=== PATIENT | male | born 1965 | race Caucasian/White ===

== ENCOUNTER 2021-11-25 21:27 | Emergency (ER) | payer BC, SELFPAY ==
[2021-11-25 21:41] VITALS: RESP 20; O2SAT 96
--- NOTE | 2021-11-25 21:41 | CRLHL7_ITS ---
For Patients: As a result of the Cures Act, medical imaging exams and procedure reports are released immediately into your electronic medical record. You may view this report before your referring provider. If you have questions, please contact your health care provider. INDICATION: Fever, cough. TECHNIQUE: Chest 1 views. COMPARISON: None. FINDINGS: Lungs: Hazy right lower lobe opacity. Pleura: No pleural effusion or pneumothorax. Heart and Mediastinum: The cardiomediastinal silhouette is normal. The vessels are unremarkable. Bones: Unremarkable. IMPRESSION: Right lower lobe opacity is suggestive of pneumonia. Dictated by Gabriel Doty MD @ 11/25/2021 10:16:08 PM (Electronically Signed)
--- NOTE | 2021-11-25 21:42 | ED_ITS ---
HPI - General Adult General Chief complaint: Fever Stated complaint: FEVER,ACHES,VOMITING-SINCE FRIDAY Time Seen by Provider: 11/25/21 21:29 Source: patient and family Mode of arrival: ambulatory Limitations: no limitations History of Present Illness HPI narrative: 56-year-old male who comes in today not feeling well for the last 5 days. Symptoms include headache, fatigue, fever, vomiting, and cough. No diarrhea, no abdominal pain. Denies chest pain or shortness of breath. Has been taking Tylenol and ibuprofen for his fever with some improvement, nothing for the last 9 hours. No known ill contacts. No rashes. Related Data Previous Rx's Medication Instructions Recorded azithromycin 250 mg tablet 250 mg PO DAILY 4 days #4 tabs 11/25/21 Review of Systems Status of ROS: Reports: 10 or more systems reviewed and unremarkable except as noted in History and below Exam Narrative: Exam Narrative: General: Well-developed and well-nourished, no acute distress Head: Atraumatic and normocephalic Eyes: Pupils are equal reactive, extraocular motions intact, conjunctiva clear ENT: External nose and ears are normal, posterior pharynx without erythema or e xudate Neck: No midline cervical tenderness, full spontaneous range of motion the neck, trachea midline, no adenopathy Heart: Regular rate and rhythm no murmurs or thrills Lungs: Trace crackles in the right base Abdomen: Soft, nontender, nondistended with active bowel sounds Musculoskeletal: No tenderness, deformity, or edema Neurologic: Awake, alert, and oriented x3, no gross focal neurologic deficits, cranial nerves intact as tested Psych: Mood and affect are appropriate Skin: No rashes Const: Vital Signs, click to edit/add: Vital Signs - 24 hr 11/25/21 21:45 Temperature 99.0 F Pulse Rate [Left P ulse Oximeter] 100 Respiratory Rate 20 Blood Pressure [Le ft Upper Arm] 132/77 Pulse Oximetry 93 Oxygen Delivery Me thod Room Air Course Course Hospital Course: Patient seen and examined, prior records are reviewed. Differential diagnosis includes but not limited to COVID, influenza, pneumonia, bacteremia, intra- abdominal infection. Patient presents with headache, fatigue, vomiting, body aches, and fever for the last 6 days. On exam here, no abdominal tenderness and has not had abdominal pain, intra-abdominal infection including appendicitis, diverticulitis, acute cholecystitis unlikely. No urinary symptoms. Symptoms are most consistent with respiratory infection, either viral or pneumonia. Labs and x-ray ordered along with IV fluids and Toradol. Reevaluation(s) Reevaluation #1: Chest x-ray demonstrates right lower lobe infiltrate consistent with pneumonia which certainly fits patient's symptoms. Remaining labs are pending, patient is finally stable and not hypoxic, no respiratory distress. He will be given Rocephin and azithromycin and plan to discharge. Time: 22:01 Reevaluation #2: Labs with mild hyponatremia and hypochloremia. Patient is receiving IV normal saline. Stable for discharge otherwise. COVID test is pending but at this poin t, would not affect clinical decision making and in light of typical appearance pneumonia on x-ray, is unlikely to be positive. Time: 23:02 Vital Signs Vital signs: Initial Vital Signs Temperature 99.0 F 11/25/21 21:45 Temperature Source Temporal Artery Scan 11/25/21 21:45 Pulse Rate 100 11/25/21 21:45 Pulse Rhythm 11/25/21 21:45 Respiratory Rate 20 11/25/21 21:45 Blood Pressure 132/77 11/25/21 21:45 Blood Pressure Mean 95 11/25/21 21:45 Blood Pressure Position Supine 11/25/21 21:45 Pulse Oximetry 93 11/25/21 21:45 Oxygen Delivery Method 11/25/21 21:45 Vital Signs Temperature 99.0 F 11/25/21 21:45 Pulse Rate 100 11/25/21 21:45 Respiratory Rate 20 11/25/21 21:45 Blood Pressure 132/77 11/25/21 21:45 Pulse Oximetry 93 11/25/21 21:45 Oxygen Delivery Method 11/25/21 21:45 Temperature 99.0 F 11/25/21 21:45 Pulse Rate 100 11/25/21 21:45 Respiratory Rate 20 11/25/21 21:45 Blood Pressure 132/77 11/25/21 21:45 Pulse Oximetry 93 11/25/21 21:45 Oxygen Delivery Method 11/25/21 21:45 Medical Decision Making Medical Records Medical records reviewed: Yes I reviewed the patient's medical records Lab Data Lab results reviewed: Yes I reviewed the patient's lab results Labs: Lab Results 11/25/21 11/25/21 Range/Units 22:10 22:10 WBC 7.49 (4.50-11.00) K/uL RBC 4.05 L (4.30-5.90) m/uL Hgb 12.1 L (13.5-17.5) gm/dL Hct 36.0 L (37.0-53.0) % MCV 89 (80-100) fL MCH 30 (26-34) pg MCHC 34 (32-36) gm/dL RDW Coeff of Kathi 13.2 (11.5-15.5) % Plt Count 167 (140-440) K/uL Neut % (Auto) 79.3 H (42.0-72.0) % Lymph % (Auto) 11.7 L (20-44) % [place] % (Auto) 8.3 (0.0-11.0) % Eos % (Auto) 0.0 (0.0-7.0) % Baso % (Auto) 0.3 (0.0-3.0) % Neut # (Auto) 5.90 (1.7-7.0) K/uL Lymph # (Auto) 0.90 (0.90-2.90) K/uL [place] # (Auto) 0.60 (0.00-0.90) K/UL Eos # (Auto) 0.00 (0.00-0.50) K/uL Baso # (Auto) 0.02 (0.00-0.30) K/uL Abs Immat Gran (auto) 0.03 (0.00-0.30) K/uL Sodium 128 L (135-149) mmol/L Potassium 4.2 (3.6-5.1) mmol/L Chloride 92 L (96-114) mmol/L Carbon Dioxide 26 (20-32) mmol/L BUN 23 (7-30) mg/dL Creatinine 1.3 (0.5-1.5) mg/dL Estimated Creat Clear 73.41 Estimated GFR 65 ml/min Glucose 127 H (60-115) mg/dL Calcium 8.7 (8.4-10.6) mg/dL Imaging Data Chest x-ray: Attestation: I have reviewed the pertinent imaging results. My impression: Right lower lobe infiltrate Discharge Plan Discharge Clinical Impression: Community acquired pneumonia, Acute hyponatremia Patient Disposition: Home, Self-Care Condition: Stable Instructions: Hyponatremia (ED), Community Acquired Pneumonia (ED) Additional Instructions: Continue Tylenol and ibuprofen, take antibiotics as prescribed starting tomorrow evening. Your sodium is little low. This can sometimes be seen with pneumonia, can also occur a few or drinking lots of water but not other fluids. Continue to stay hydrated but consider starting Gatorade, Pedialyte, or broth soups to help get salt. Activity Level: Activity as Tolerated Discharge Diet: Regular Prescriptions: New azithromycin 250 mg tablet 250 mg PO DAILY 4 Days Qty: 4 0RF Rx Instructions: start on day 2 of therapy evening of 11/26/2021 Stand Alone Forms: Coub Info Instructions
[2021-11-25 21:45] VITALS: BP 132/77; PULSE 100; RESP 20; TEMP 37.2; O2SAT 93; BMI 33.0
[2021-11-25] MEDS: KETOROLAC 15 MG/ML inj IVP (22:22)
[2021-11-25] MEDS: 0.9 % SODIUM CHLORIDE 1000 ml 1,000 ML IV (22:23)
[2021-11-25 22:27] LABS: Basophils Absolute Auto 0.02 K/uL (0.00-0.30); Basophils Percent Auto 0.3 % (0.0-3.0); Hemoglobin* 12.1 gm/dL (13.5-17.5); Immature Granulocytes Abs Auto 0.03 K/uL (0.00-0.30); Lymphocytes Percent Auto 11.7 % (20-44); Mean Corpuscular HGB Conc 34 gm/dL (32-36); Mean Corpuscular Hemoglobin 30 pg (26-34); Mean Corpuscular Volume 89 fL (80-100); Monocytes Percent Auto 8.3 % (0.0-11.0); Neutrophils Percent Auto 79.3 % (42.0-72.0); Platelet Count* 167 K/uL (140-440); RDW Coefficient of Variation % 13.2 % (11.5-15.5); Red Blood Count 4.05 m/uL (4.30-5.90); White Blood Count* 7.49 K/uL (4.50-11.00)
[2021-11-25 22:29] LABS: Slide Review Reflex No
[2021-11-25] MEDS: cefTRIAXone 1 GM in 0.9 % SODIUM CHLORIDE Mini-bag 100 ML IVPB (22:38)
[2021-11-25] MEDS: AZITHROMYCIN 250 MG TABLET 500 MG PO (22:39)
[2021-11-25 22:40] LABS: Chloride* 92 mmol/L (96-114); Potassium* 4.2 mmol/L (3.6-5.1); Sodium* 128 mmol/L (135-149)
[2021-11-25 22:43] LABS: Blood Urea Nitrogen* 23 mg/dL (7-30); Carbon Dioxide* 26 mmol/L (20-32); Creatinine* 1.3 mg/dL (0.5-1.5); Est. Creatinine Clearance* 73.41; Estimated Glomerular Filt Rate 65 ml/min; Glucose* 127 mg/dL (60-115)
[2021-11-25 22:44] LABS: Calcium* 8.7 mg/dL (8.4-10.6)
[2021-11-25 23:04] LABS: PCR FLU A Negative PCR FLU A (Negative); PCR FLU B Negative PCR FLU B (Negative)
[2021-11-25 23:07] LABS: SARS PCR* Negative SARS-CoV-2 (Negative)
== END 2021-11-25 23:47 | disposition home or self-care (01) ==
PROVIDERS: Emergency Provider Family Medicine
DX: J18.9 Pneumonia, unspecified organism (principal); E87.1 Hypo-osmolality and hyponatremia
CPT/HCPCS: 36415; 71045; 80048; 81001; 85025; 87631; 96374; 96375; 99284; A9270; J0696; J1885; J7030